=== PATIENT | male | born 1990 | race Caucasian/White ===

== ENCOUNTER 2022-02-11 12:15 | Emergency (ER) | payer MEDICAID ==
[~2022-02-11] VITALS: Ht 185.4 cm; Wt 77.0 kg
[2022-02-11 13:02] VITALS: BP 159/97
== END 2022-02-11 18:13 | disposition home or self-care (01) ==
LOC: ER 12:15
DX: S20.212A Contusion of left front wall of thorax, initial encounter (principal); S80.02XA Contusion of left knee, initial encounter; R03.0 Elevated blood-pressure reading, without diagnosis of hypertension; V49.49XA Driver injured in collision with other motor vehicles in traffic accident, initial encounter; Y93.89 Activity, other specified; Y92.488 Other paved roadways as the place of occurrence of the external cause
CPT/HCPCS: 71101; 73562; 99284

== ENCOUNTER 2023-11-06 13:10 | Emergency (ER) | payer MEDICAID ==
[~2023-11-06] VITALS: Ht 190.5 cm; Wt 87.0 kg
[2023-11-06 13:12] VITALS: TEMP 98.7; O2SAT 98
[2023-11-06] MEDS ORDERED: IBUPROFEN 800MG TABLET PO ONE (15:15)
[2023-11-06 15:30] VITALS: BP 135/86; PULSE 85
[2023-11-06] MEDS ORDERED: IBUPROFEN 400MG TABLET PO NR (15:30)
[2023-11-06] MEDS ORDERED: IBUP-2030 MT (16:29)
[2023-11-06] MEDS ORDERED: AMOX1TAB16 MT (16:29)
== END 2023-11-06 18:02 | disposition left against medical advice (07) ==
LOC: ER 13:29
DX: S62.304A Unspecified fracture of fourth metacarpal bone, right hand, initial encounter for closed fracture (principal); W18.39XA Other fall on same level, initial encounter; Y93.89 Activity, other specified; Y92.89 Other specified places as the place of occurrence of the external cause; Y99.8 Other external cause status
CPT/HCPCS: 73130; 99283